=== PATIENT | female | born 1960 | race Caucasian/White ===

== ENCOUNTER 2018-04-04 07:23 | Outpatient (RCR) | payer OTHER, SELFPAY ==
--- NOTE | 2018-04-04 09:08 | IE_ITS ---
Date: 04/04/18 Referring: Joby Andersen MD M.D. Diagnosis: R knee PF chondromalacia, medial meniscus tear P.T. Diagnosis: R knee PF chondromalacia, medial meniscus tear SUBJECTIVE: History of Present Illness: Patient reports to be employed by [employer]. She was working on 12/03/17, when she had to pull a heavy cart from her right side, while opening a door on her left side, straining her right knee. She had immediate pain and swelling, and went to the [facility] for evaluation. She was provided, with what she describes as, a long leg stabilization brace, and to refrain from working x 3 days. 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 She reports ot have slow diminishment of her swelling, with use of brace and ice. She had 10 chiropractic appointments of management of her knee pain, and described having been treating solely with US modality around her knee. She did have some improvement, but followed with orthopaedics due to continued disrupting discomfort. [facility], after having an MRI. Her MRI demonstrated a mild meniscal tear. Dr. Andersen felt conservative treatment would manage her symptoms. He also prescribed her a brace , which she understands is to stabilize her knee. She does admit that it make her feel more stable, but she doesn't feel that she necessarily needs the brace. Her pain is under fairly good control at this time, and she is able to do just about any functional activity that she wishes. Reports resolution of swelling, unless she has overdone her activity, she may have low grade swelling. Pain Rating: .5 /10, currently. 2-3/10 at worst after higher level, long duration activities. Pain Location: Medial R knee Prior Level of Function: WNL Current Level of Function: Pain with standing rotation through the knee, when moving objects or doing some occupation object manipulation, kneeling for long time periods (sometimes resulting in bruising along the front of the knee), discomfort in the evening without sleep disruption, pain and instability with squatting. She able to continue with gardening, weed waking, and heavy yard work activities. Continues to work multimedia manager at [employer], avoiding lifting over 50 #. Social: , Employed by [employer]. Does not describe participation in any higher level functional activities, aside from her job duties. Comorbidities: None Falls in the last year: __x__ No ____Yes - How many? ____ - (if over 2, balance SM needs to be completed) Reported hospitalizations in the last year - __x__ No ____ Yes - Dates of admission/reason: Medications: Aleve prn Quality of Life: __x__ Excellent ____ Good __[]__ Fair __[]__ Poor Standardized Measures: LEFS score: __30%__ OBJECTIVE: Posture: Unimpaired Observation: Donning brace R knee. Visual appearance of knees and LE's is symmetrical. Gait: WNL, toe and heel walk WNL Palpation: WNL, with the exception of discomfort along the medial knee and pes anserine bursa. Edema: None Girth measurements: Symmetrical ROM: WNL bilaterally throughout LE's Joint Accessory Motion: WNL PF and TF joint Strength: 5/5 throughout B LE's, demonstrates good core awareness and stability. Initially compensates quad set with glute activation. Neuro: WNL Balance: WNL, no demonstration of poor proprioception at R LE. Special Tests: (-) to include Doug's, Lauchman's, Patella compression, patella grind, Apley's distraction and compression, valgus and varus stress testing, hyperextension testing. Mild pain with medial and lateral Thessaly rotation. Treatment: IE: [id number] Patient Education: Use of brace is up to her, as she demonstrate no great clinical impairments or instability. Always don if unstable or in pain. Proper form and speed of movement with below exercises. KX applied to all codes ____ Yes __x__ No Therapeutic procedures ([id number]). _ x_ HEP review: See file. Extensive program developed due to patient's schedule making it difficult for her to attend PT, so will try and use HEP as much as possible. Direct treatment time: 60 minutes Total treatment time: 60 minutes ASSESSMENT: Patient is a 57-year-old female, referred for PT services with the diagnosis of R patellofemoral chondromalacia and medial meniscal tear, confirmed with MRI. Patient presents with clinical signs and symptoms consistent with this diagnosis , with resolving impairment level problems. She demonstrates subjective c/o swelling and irritation with long duration weightbearing and high level activities, which can produce some swelling and instability of the knee. However, not presenting with either of these today, due to her fairly low impact activities over the past few days. She will require PT to initiate a general LE conditioning and strengthening program to re-establish stability of the knee with higher level activities with no pain, comparable to her premorbid level of function. Patient is assessed as: __x__ Low 19055 ____ Moderate 32144 ____ High 63146 complexity, based on the following: History: (list): x See comorbidities and social history. Examination: (list): x See above for functional limitations and impairments. Presentation: x Stable . Evolving Unstable Decision-Making: xx Low complexity Moderate complexity High complexity % Disability based on [] __x__ Patient requires skilled PT intervention to remediate the above functional limitations to return to: __x__ Premorbid level of function __x__ Return to full functional mobility __x__ Return to work demands, with no restrictions on weight lifiting. Prognosis: __x__ Excellent __[]__ Good __[]__ Fair __[]__ Poor STG: __3__ weeks. 1. Can continue with strengthening HEP independently, with good movement pattern and intrinsic support, to accomodate to her schedule as primary PT intervention. 2. Reports improvement in feeling of stability by 50%. 3. Pain decreased to 1/10 at the end of her work day. LTG: __6__ weeks. __x__ Return to premorbid level of function. __x__ Return to full, pain-free, functional mobility. __x__ Independent with self-maintenance program. PLAN: Patient to be seen 1-2x per week, for 6 weeks, adjusting frequency of visits per patient symptoms and response to treatment. Patient to receive both physical therapy and athletic training services. Treatment to include: x Therapeutic exercise - 66231: For gross LE strengthening, with focus on L LE, to include proprioceptive, OKC and CKC exercises, and hip girdle stabilization to insure biomechanical stabilization. Thank you for this referral. Please do not hesitate to contact me with any questions or concerns regarding this patient's plan of care.
== END 2018-04-05 23:59 | disposition home or self-care (01) ==
LOC: PT 07:23
PROVIDERS: PCP Nurse Practitioner Family; Referring Provider Specialist; Visit Provider Specialist
DX: S83.241D Other tear of medial meniscus, current injury, right knee, subsequent encounter (principal); M94.261 Chondromalacia, right knee
CPT/HCPCS: 97110; 97161

== ENCOUNTER 2019-02-28 09:14 | Outpatient (REF) | payer OTHER, SELFPAY ==
--- NOTE | 2019-02-28 09:00 | PAPFT_PTH ---
PATIENT: Paz Panchal LOC: [facility] U#:[id number] AGE/SX: 58/F ROOM: RE02/28/[address]: Velvet Sales APRN : 1960 BED: DIS: 02/28/2019 SPEC #: [id number] RECD: 02/28/19 12:58 STATUS: [place] REQ #: [id number] JOSE: 02/28/19 09:[address]: Velvet Sales DEPT: [facility] Cytology RECD BY: Alpa Turner Tissues: 1 - CX/ENDOCX FOR PAP SMEARS Procedures: PAP THIN PREP/UVM Screening HPV DNA PROBE Comments: [id number]
== END 2019-02-28 09:34 ==
LOC: LBN 09:14
PROVIDERS: PCP Nurse Practitioner Family; Visit Provider Nurse Practitioner Family
DX: Z12.4 Encounter for screening for malignant neoplasm of cervix (principal); Z11.51 Encounter for screening for human papillomavirus (HPV)
CPT/HCPCS: 88142; 87624

== ENCOUNTER 2019-03-26 00:56 | Outpatient (CLI) | payer OTHER, SELFPAY ==
--- NOTE | 2019-03-26 09:38 | DI.MAMMO_ITS ---
SYMPTOMS/DIAGNOSIS: SCREENING, Z12.31 MAMMOGRAM: Mammograms were interpreted according to the usual protocol including computer analysis with CAD system, tomosynthesis and C view imaging. The breasts are of moderate density with fairly symmetrical distribution of fibroglandular tissue. No dominant mass or clumped microcalcification identified in either breast. There is a biopsy clip in the upper inner quadrant of the right breast. Examination is compared with the previous examinations including September 2014 and there has been no gross interval change in appearance in comparison with the previous studies. CONCLUSION: No specific evidence of malignancy at this time. Routine screening examinations are suggested at yearly intervals due to the family history of breast carcinoma. Category 1, breast density category B. SA ASSESSMENT OF FINDINGS: Negative. Category 1. Patient will receive a letter notifying them of these results. BI-RADS category B. There are scattered areas of fibroglandular density.
== END 2019-03-26 01:16 ==
PROVIDERS: PCP Nurse Practitioner Family; Visit Provider Nurse Practitioner Family
DX: Z12.31 Encounter for screening mammogram for malignant neoplasm of breast (principal); Z80.3 Family history of malignant neoplasm of breast
CPT/HCPCS: 77063; 77067

== ENCOUNTER 2019-03-26 01:40 | Outpatient (CLI) | payer OTHER, SELFPAY ==
[2019-03-26 09:56] LABS: Anion Gap 10.5 mmol/L (3-11); BUN 22 mg/dL (7-18); CO2 24.5 mmol/L (21.0-32.0); CREATININE 0.71 mg/dL (0.55-1.02); Calcium 8.6 mg/dL (8.5-10.1); Calculated LDL 77 mg/dL; Chloride 107 mmol/L (98-107); Cholesterol 128 mg/dL (50-200); Glucose 93 mg/dL (70-100); HDL Cholesterol 33 mg/dL (40-60); Potassium 4.5 mmol/L (3.5-5.1); Sodium 142 mmol/L (136-145); Triglyceride 92 mg/dL (30-150)
[2019-03-27 09:44] LABS: HIV-1/2 Ag & Ab Screen Negative (NEGAT)
[2019-03-27 09:48] LABS: Hepatitis C Ab w Rflx HCV PCR Negative (NEGAT)
== END 2019-03-26 02:00 ==
PROVIDERS: PCP Nurse Practitioner Family; Visit Provider Nurse Practitioner Family
DX: Z13.220 Encounter for screening for lipoid disorders (principal); Z13.1 Encounter for screening for diabetes mellitus; Z11.59 Encounter for screening for other viral diseases; Z11.4 Encounter for screening for human immunodeficiency virus [HIV]
CPT/HCPCS: 36415; 80048; 80061; 83721; 86803; 87389

== ENCOUNTER 2019-05-14 16:20 | Outpatient (CLI) | payer OTHER, SELFPAY ==
--- NOTE | 2019-05-14 14:20 | DI.RAD_ITS ---
EXAM: XR KNEE RT 4V AP,LAT,ANGELI,PAT INDICATION: Per request worker's comp Ortho [id number] PAIN RT KNEE. COMPARISON: XR KNEE 2 VIEW RIGHT from 11/11/2017 TECHNIQUE: 2D digital imaging was performed. FINDINGS: The bones appear osteopenic. The joint space is intact. There is no significant periarticular spur ring. IMPRESSION: No acute abnormality.
== END 2019-05-14 16:40 ==
PROVIDERS: PCP Nurse Practitioner Family; Visit Provider Nurse Practitioner Family
DX: M25.561 Pain in right knee (principal); M85.88 Other specified disorders of bone density and structure, other site
CPT/HCPCS: 73564

== ENCOUNTER → 2022-02-08 02:17 | Outpatient (CLI) | payer OTHER, SELFPAY ==
--- NOTE | 2022-02-08 07:00 | DI.RAD_ITS ---
Exam(s) XR THUMB LT EXAM: XR THUMB LT CLINICAL HISTORY: Evaluate degree of arthritis,pain,m18.10. TECHNIQUE: 2D digital imaging was performed. Three views. COMPARISON: None. FINDINGS: BONES: No acute fracture is present. No bony destructive lesion is seen. JOINTS: No dislocation present. Minimal joint space narrowing at the interphalangeal joint of the th umb and mild periarticular spurring. Minimal narrowing of the metacarpophalangeal joint. Mild to mo derate narrowing at the 1st carpal metacarpal joint with mild periarticular spurring. SOFT TISSUE: Normal. IMPRESSION: Mmae-mp-gfyyucho degenerative changes at the 1st carpal metacarpal joint. DATA REPOSITORY: RADIATION DOSE DELIVERED:
== END ==
PROVIDERS: PCP Nurse Practitioner Family; Visit Provider Family Medicine
DX: M18.12 Unilateral primary osteoarthritis of first carpometacarpal joint, left hand (principal)
CPT/HCPCS: 73140

== ENCOUNTER 2022-02-15 03:20 | Outpatient (CLI) | payer OTHER, SELFPAY | END 2022-02-15 03:21 | disposition home or self-care (01) | PROVIDERS: PCP Nurse Practitioner Family; Visit Provider Family Medicine | DX: M18.12 Unilateral primary osteoarthritis of first carpometacarpal joint, left hand (principal); M79.645 Pain in left finger(s) | CPT/HCPCS: 36415; 84550 ==

== ENCOUNTER → 2022-03-16 00:56 | Outpatient (CLI) | payer OTHER, SELFPAY ==
--- NOTE | 2022-03-16 06:30 | DI.MAMMO_ITS ---
Exam(s) MAMMO SCREENING EXAM: MAMMO SCREENING CLINICAL HISTORY: screening,z12.39. TECHNIQUE: Bilateral full field digital CC and MLO mammographic images were obtained with 3D tomosyn thesis and utilizing computer aided detection (CAD). COMPARISON: Prior mammograms were reviewed, the most recent being March 2019.. FINDINGS: The fibroglandular tissue is again noted be moderately dense. No new findings in the immediate vicinity of the biopsy marker clip in the right breast. No new significant radiograph findings in left breast. In the anterior aspect of right breast there is a new asymmetric density-nodular density measuring 6 x 4 millimeters located 2.5 cm in from the nipple, lateral of center. Requires further imaging. The re are no malignant-appearing microcalcification groups in this region elsewhere in either breast. There is no significant architectural distortion nor skin thickening-retraction. IMPRESSION: 1. No radiographic evidence of malignancy in left breast. 2. New right breast lobulated asymmetric density-nodule measuring 6 x 4 millimeters. Spot compressio n view and ultrasound recommended. BI-RADS Category 0 - Assessment Incomplete: Need additional imaging evaluation Breast Density - Category C - Heterogeneously dense Breast density Category C or D implies that the patient has dense breast tissue. Dense breast tissue can make it harder to find cancer on a mammogram. Dense breast tissue is also associated with an incr eased risk of breast cancer. This information about the result of the mammogram report was provided to the patient to raise their awareness. Use this report when you speak with the patient about their risks for breast cancer, which includes their family history. At that time, you may recommend additional screening tests (Ultrasoun d or MRI) as these tests may add significant information. A negative radiographic report should not delay biopsy if a dominant or clinically suspicious mass is present. Up to ten percent of cancers are not identified on mammography. A negative report may reinforce clinical impression. Adenosis and dense breasts may obscure an underlying neoplasm. False positive reports average 6 to 10%. Patient will receive a letter notifying them of these results.
== END ==
PROVIDERS: PCP Nurse Practitioner Family; Visit Provider Nurse Practitioner
DX: Z12.31 Encounter for screening mammogram for malignant neoplasm of breast (principal); R92.8 Other abnormal and inconclusive findings on diagnostic imaging of breast
CPT/HCPCS: 77063; 77067

== ENCOUNTER → 2022-03-24 00:17 | Outpatient (CLI) | payer OTHER, SELFPAY ==
--- NOTE | 2022-03-24 | DI.US_ITS ---
Exam(s) MG MAMMO SCREEN CALL BACK UNI US BREAST RT LIMITED EXAM: MG MAMMO SCREEN CALL BACK UNI CLINICAL HISTORY: NEW ASYMMETRIC DENSITY RT BREAST. TECHNIQUE: Craniocaudal spot compression digital Mammography views of the rightbreast with Tomosynth esis and right breast ultrasound. COMPARISON: MG SCREENING RYANN MAMMO W/CAD DIGI from 09/11/2013 MG Screening Bilat Mammo from 09/30/2014 MG MG mammo screening from 03/26/2019 MG MG MAMMO SCREENING from 03/16/2022 US US BREAST RT LIMITED from 03/24/2022 FINDINGS: Mammography/Tomosynthesis: Masses/Architectural Distortion: Circumscribed lobulated nodule in the anterior breast tissue lateral to the nipple. No suspicious features. Microcalcifictions: No suspicious pleomorphic-type are seen. Skin Thickening/Nipple Retraction: None. Right breast US: Echotexture: Normal appearance of the glandular tissue. Shadowing: No suspicious foci. Cyst: In the 9 o'clock position, 3 cm from the nipple, there are 2 adjacent cysts measuring 4 and 3 millimeters. Also in 9 o'clock position, 6 cm from the nipple there is a 6 x 5 x 2 millimeters cyst. Solid lesions: None seen. Ductal dilation: None. IMPRESSION: 1. Mammographic nodule corresponds to a cyst. 2. Unless there is more urgent need, follow-up screening mammography is recommended, as per [place] [employer] guidelines. 3. The findings were discussed with the patient on the date of the examination. BI-RADS Category 2 - Benign Findings Breast Density - Category C - Heterogeneously dense A mammogram that demonstrates density of C or D indicates the patient's breast tissue is dense. Dense breast tissue is very common and is not abnormal, but dense breast tissue can make it harder to find cancer on a mammogram. Also, dense breast tissue may increase their breast cancer risk. This informa tion about the result of the mammogram report was provided to the patient to raise their awareness. U se this report when you speak with the patient about their risks for breast cancer, which includes th eir family history. At that time, you may recommend for more screening tests (Ultrasound or MRI) as t hey might be useful based on their risk. A negative radiographic report should not delay biopsy if a dominant or clinically suspicious mass is present. Up to ten percent of cancers are not identified on mammography. A negative report may reinforce clinical impression. Adenosis and dense breasts may obscure an underlying neoplasm. False positive reports average 6 to 10%. Patient will receive a letter notifying them of these results.
--- OUTSIDE RECORDS SUMMARY | 2022-03-24 00:20 | XMS_ITS | Clinical Summary ---
:1960 Author Organization [facility] [place] [address] Care Team Providers Name Role Phone Snow Bullock APRN Primary Care Provider [phone] Allergies Active Allergy Reactions Severity Noted Date Comments Sulfa (Sulfonamide Antibiotics) 2 Medications Medication Sig Dispensed Refills Start Date End Date Status ibuprofen Take 1 tablet by 30 tablet 0 01/12/2012 Ac tive (ADVIL;MOTRIN) 800 mg mouth every 8 tablet hours as needed for Pain. Active Problems No known active problems Social History Tobacco Use Types Packs/Day Years Used Date Never Smoker Alcohol Use Standard Drinks/Week Comments Yes 0 (1 standard drink = 0.6 oz pure alcoho l) Sex Assigned at Date Recorded Not on file Last Filed Vital Signs Vital Sign Reading Time Taken Comments Blood Pressure 126/80 11/11/2017 11:35 AM EDT Pulse 79 11/11/2017 11:35 AM EDT Temperature 36.7 ??C (98.1 ??F) 11/11/2017 10:15 AM EDT Respiratory Rate 16 11/11/2017 11:35 AM EDT Oxygen Saturation 99% 11/11/2017 11:35 AM EDT Inhaled Oxygen Concentration - - Weight - - Height - - Body Mass Index - - Plan of Treatment Health Maintenance Due Date Last Done Comments Covid-19 Vaccine (#1) 1965 HIV screen 1978 Hepatitis C Screening 1978 Tdap adult 1979 Tetanus vaccine 1979 HPV test 1990 PAP Smear 1990 Breast Cancer Share Decision Needed 2000 Colonoscopy 2005 Breast Cancer screening 2010 Zoster vaccine (1 of 2) 2010 Advance Directive 2015 Influenza (Flu) vaccine (1 of 1 - Influenza standard 04/06/2022 series) Insurance Payer Benefit Plan Subscriber ID Effective Dates Phone Address Type / Group WORK COMP WC WORK COMP [id number] 2017-Prese [phone] [address] [address] GENERIC GENERIC [address] [place] [address] Care Teams Nursing Surgical Services Director Relationship Specialty Start Date End Date Snow Bullock, COCOA BEAN ROASTER HELPER PCP - General 06/28/[address] [place], [place] [id number]
--- OUTSIDE RECORDS SUMMARY | 2022-03-24 00:21 | XMS_ITS | Encounter Summary ---
:1960 Author Organization [facility] [place] [address] Care Team Providers Name Role Phone Snow Bullock APRN Primary Care Provider [phone] Encounter Details Date Type Department Care Team Description 08/10/2011 Telephone FABRICATION TECHNICIAN at [facility] Sherman Villasenor RN [place] [address] [place] [id number] Social History Tobacco Use Types Packs/Day Years Used Date Never Assessed Sex Assigned at Date Recorded Not on file documented as of this encounter Miscellaneous Notes Telephone Encounter - Sherman Granda RN - 08/10/2011 10:06 AM EST Pt is not established within this office or [facility]. Pt calling today to report she shaved prior to holiday weekend, went to [employer]anning [employer] and used public/commericial hot tub at hotel they stayed at. Pt reports having minor, what she thinks is a tear in the crease on one side of labia. Unable to get to her PCP until 08/30, as a new PCP, took over the one she was currently seeing. Pt was seen forannual ECONOMIC ANALYSIS DIRECTOR in the spring. Reports having also gotten a light menses, after the strain of the holidays. Pt advised she needs to contact PCP for visit, we are able to make NPV, however timing wouldn't beappropriate for her issue. Urgent care also offered. Pt states she is applying petroleum jelly to area. Advised not to do so, may use crisco to help alleviate discomfort, keeping area clean and dry. Ptvoices understanding, does not wish to arrange visit to see fryer line helper in future to establish care. Pt. wasjust hoping to get seen today. All questions answered to pt satisfaction, pt agree's to get sooner visit at PCP or contact urgent care. Pt complies with plan Telephone Encounter - Sherman Granda RN - 08/10/2011 9:44 AM EST Message copied by SHERMAN GRANDA on SunAug 10, 2011 9:44 AM ------ Message from: ANGEL LUIS SIMPSON Created: SunAug 10, 2011 9:24 AM Contact: Self ECONOMIC ANALYSIS DIRECTOR Triage Concern Who Called: Self Call Back that patient will tack picker at: [phone] Brief concern: Pt stated she is menopausal and just got her period after 15 months. She also statedshe shaved and went to a [employer]anning [employer] and has a concern. Are you comfortable waiting for the nurse callback by the end of the day? Yes documented in this encounter Plan of Treatment Not on filedocumented as of this encounter Visit Diagnoses Not on filedocumented in this encounter Care Teams Shirring Machine Operator Relationship Specialty Start Date End Date Snow Bullock APRN PCP - General 06/28/[address] [place] [address] documented as of this encounter
--- OUTSIDE RECORDS SUMMARY | 2022-03-24 00:21 | XMS_ITS | Encounter Summary ---
:1960 [place] [address] Care Team Providers Name Role Phone Snow Bullock APRN Primary Care Provider [phone] Reason for Visit Reason Comments Rib Injury Encounter Details Date Type Department Care Team Description 01/12/2012 Emergency Emergency Department Ezra Holman PA [facility] EMERGENCY MEDIC[facility] [place] [id number] Chest wall injury [facility] EMERGENCY DEPT, [facility] [place] [address] [facility] Joselo faith [place] [phone] Social History Tobacco Use Types Packs/Day Years Used Date Never Smoker Alcohol Use Standard Drinks/Week Comments Yes 0 (1 standard drink = 0.6 oz pure alcoho l) Sex Assigned at Date Recorded Not on file documented as of this encounter Last Filed Vital Signs Vital Sign Reading Time Taken Comments Blood Pressure 121/54 01/12/2012 4:37 PM EDT Pulse 74 01/12/2012 4:37 PM EDT Temperature 36.9 ??C (98.4 ??F) 01/12/2012 4:37 PM EDT Respiratory Rate 14 01/12/2012 4:37 PM EDT Oxygen Saturation 99% 01/12/2012 4:37 PM EDT Inhaled Oxygen Concentration - - Weight - - Height - - Body Mass Index - - documented in this encounter Discharge Instructions Discharge InstructionsCassEzra strauss PA - 01/12/2012 5:21 PM EDT Try a rib belt for comfort during the day. Cough and deep breathe 3-4 times a day. Ibuprofen and Tylenol for pain. No lifting more than 20 pounds for the next week. To be rechecked if shortness of breath difficulty breathing or abdominal pain. documented in this encounter Medications at Time of Discharge Medication Sig Dispensed Refills Start Date End Date ibuprofen (ADVIL;MOTRIN) Take 1 tablet by 30 tablet 0 01/11 800 mg tablet mouth every 8 hours as needed for Pain. documented as of this encounter ED Notes Ezra George PA - 01/12/2012 5:16 PM EDT Chief Complaint Patient presents with ??? Rib Injury HPI Comments: Patient here with a rib injury. 3 days ago while reaching over the side of the roof felt a snap and pain left lateral ribs. Pain gradually improving today use her right arm and had sharp pain in the same area. That sharp pain has improved the last few hours. Patient denies shortness of breath abdominal pain or any other complaints. Negative past medical history for pulmonary disease. The history is provided by the patient. Allergies Allergen Reactions ??? Sulfa(sulfonamide Antibiotics) Review of Systems Physical Exam Pulmonary/Chest: Effort normal and breath sounds normal. She exhibits tenderness (left midclavicularlower rib tenderness, no ecchymosis). Abdominal: Soft. Bowel sounds are normal. No tenderness. chest wall injury, discussed need for chest x-ray. Patient agrees no x-ray needed, I suspect intercostal injury rather than a fracture. Procedures MDM ED Course: Chest wall injury LARRY Colon 01/12/12 1720 documented in this encounter Miscellaneous Notes Discharge Summary - Provider, Kita - 01/15/2012 9:32 AM EDT Miscellaneous - Provider, Kita - 01/12/2012 6:31 PM EDT ED Triage - Laure Romero RN - 01/12/2012 4:40 PM EDT Patient here with complaints of left rib pain. Patient was leaning over and felt a pop and now hurtswhen she reaches with her right arm she felt a bit of pain and is concerned, and is having a hard time sleeping due to pain. Patient is alert and oriented X 3. No pain on deep inspiration. documented in this encounter Plan of Treatment Not on filedocumented as of this encounter Visit Diagnoses Diagnosis Chest wall injury Other injury of chest wall documented in this encounter Care Teams Warehouse Assembly Worker Relationship Specialty Start Date End Date Snow Bullock APRN PCP - General 06/28/[address] [place] [address] documented as of this encounter
== END ==
PROVIDERS: PCP Nurse Practitioner Family; Visit Provider Nurse Practitioner Family
DX: Z12.31 Encounter for screening mammogram for malignant neoplasm of breast (principal); R92.8 Other abnormal and inconclusive findings on diagnostic imaging of breast
CPT/HCPCS: 76642; 77063; 77067

== ENCOUNTER 2022-10-05 06:53 | Day surgery (SDC) | payer OTHER, SELFPAY ==
--- NOTE | 2022-10-04 19:45 | W.PM.DSUDISC ---
Date of service: 10/05/22 Time of Service: 08:03 Discharge Plan Disposition Patient Disposition: Home Condition: Good Discharge Details Reason For Visit: Screening colonoscopy Attending Provider: Armaan Mcbride Primary Care Provider: Velvet Sales Home Meds and New Rx's Prescriptions: Continued calcium carb-D3-mag [id number] [phone] zj-[id number]-[id number]-mg tablet 1 tab PO DAILY Rx Instructions: administer with a meal fluticasone propionate [Flonase Allergy Relief] 50 mcg/actuation spray,suspension 1 - 2 spray NS DAILY Qty: 1 3RF albuterol sulfate [ProAir HFA] 90 mcg/actuation HFA aerosol inhaler 1 puff Inhalation Q4-6H PRN Qty: 1 0RF Rx Instructions: DISPENSE ALBUTEROL INHALER BRAND COVERED BY INSURANCE meloxicam 15 mg tablet 15 mg PO DAILY Qty: 30 2RF Discontinued bisacodyl [Dulcolax (bisacodyl)] 5 mg tablet,delayed release (DR/EC) 5 mg PO ONCE Qty: 4 0RF Rx Instructions: Take according to provider's instructions for colonoscopy prep. polyethylene glycol 3350 17 gram/dose powder 17 g PO ONCE Qty: 238 0RF Rx Instructions: To be taken as directed by prescriber's office for colonoscopy prep. Discharge Instructions Instructions: Diverticulosis (GEN) Additional Instructions: Paz, we were able to complete your colonoscopy without any difficulty today. The quality of your prep was excellent. You have just a few diverticula. These are very little weak spots in the colon wall. I provided a little bit of general information about them. Based on what I see on the colonoscopy, I do not think these will ever become a problem for you. I do not think you need to make any special modifications to your diet for them. You have a very small amount of redundancy in the skin right at your anus. This is almost certainly from old hemorrhoids probably associated with your previous pregnancies. Honestly, I do not think you need to do anything about these. The pain of an operation to reduce it is probably not worth it. You should have another colonoscopy in 10 years as routine surveillance for colon cancer. 1. If tolerated, consume a soft, low fiber diet for 1-2 days. 2[address] Do not drive, drink alcohol, operate machinery, make critical decisions, or do activities that require coordination or balance for 24 hours. 3. Because air was put into your colon during the procedure, expelling air from your rectum (passing gas or farting) is normal. 4. You may not have a bowel movement for 1-3 days because of the colonoscopy prep. This is normal. 5. Go directly to the emergency room if you notice any of the following: Develop chills (warm to touch), or if you have a thermometer and your temperature is above 101 Difficulty breathing or difficultly swallowing Persistent vomiting Severe abdominal pain, other than gas cramps Severe chest pain Black, tarry stools Any bleeding ? exceeding one tablespoon 6. Call your physician if the site where your intravenous was started becomes red, swollen, painful, and warm to touch. 7. Your physician has reviewed your pre-procedure medications. Please continue to take those medications as previously ordered. You will be given specific information/education regarding any changes to your medications before leaving. Activity:: Activity as Tolerated Diet:: As Tolerated Discharge Orders Discharge Orders: Discharge Order (Routine); Ordered 10/04/22 Ordered By: Armaan Mcbride DS: Diagnosis Discharge Diagnosis (1) Screening for colon cancer: Status: Acute Asessment and Plan: Normal colonoscopy, recommend next screening colonoscopy in 10 years
--- NOTE | 2022-10-04 19:46 | W.PM.OP ---
Date of service: 10/05/22 Operative Note Operative Note DATE OF PROCEDURE: 10/05/22 PRE-OP DIAGNOSIS: Screening colonoscopy PROCEDURE: Colonoscopy SURGEON: Armaan Mcbride ANESTHESIA TYPE: General:No Airway Refer to Anesthesia Record COMPLICATIONS: None Patient was transported to: same day Patient's condition: stable Indications: Jazmin is a 62 year old woman here for her next screening colonoscopy
[2022-10-05 06:59] VITALS: BP 118/85; PULSE 76; RESP 18; TEMP 37; O2SAT 98
[2022-10-05] MEDS: Lactated Ringers 1,000 ML 80 ML IV (07:07)
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
[2022-10-05 07:14] VITALS: BMI 23.8
[2022-10-05 08:06] VITALS: BP 125/82; PULSE 85; RESP 18; TEMP 36.3; O2SAT 98
--- NOTE | 2022-10-05 08:16 | COLE_ITS ---
Date of service: 10/05/22 Time of Service: 08:16 Colonoscopy Report Date of procedure: 10/05/22 Pre-op diagnosis general: Screening colonoscopy Post-op diagnosis procedure note: same Procedure: Colonoscopy Surgeon: Armaan Mcbride Anesthesia Type: General:No Airway Estimated blood loss (mL): 0 Pathology: none sent Complications: None Disposition: same day Indications: Paz is a 62-year-old woman here for her next screening colonoscopy Prep: Miralax/Dulcolax Procedure Start Time: 07:47 Procedure End Time: 07:56 Retraction Time: 6 Findings: There are diverticulosis Procedure Description: After the induction of monitored anesthetic care, and with the patient in left lateral decubitus position, I began by performing an external anorectal exam.? Perineum and skin were normal, as was the anal verge.? There is very mild redu ndancy of the external perianal skin, consistent with fibrosed external hemorrhoids.? Next, I performed a digital rectal exam.? I did not appreciate any abnormal findings.? Next, I advanced a colonoscope into the rectal vault.? I performed retroflexion.? This was normal.? Using insufflation, I then advanced the colonoscope beyond the rectal folds and into the sigmoid colon before advancing towards the cecum.? There are very rare sigmoid diverticula. Perhaps 2 or 3 total. The quality of the prep was outstanding.? The scope was noted to be in the cecum by identification of the ileocecal valve and appendiceal orifice.? I then began withdrawing the colonoscope using repeated irrigation as necessary for full evaluation of the colonic mucosa. ?Once the scope was withdrawn to the level of the rectum, great care was taken to examine portions of the rectal folds.? Finally, the scope was withdrawn and the patient was brought to the same-day surgery recovery unit as the anesthetic wore off. ?The findings and instructions were shared with the patient prior to discharge.
--- NOTE | 2022-10-05 08:16 | W.ANESPOSTOP ---
Postoperative Evaluation Date, Time and Location Date Performed: 10/05/22 Time Performed: 08:16 Patient Location: Day Surgery Unit Vital Signs Most Recent Imported Vital Signs: Most Recent Vital Signs Temp Pulse Resp BP Pulse Ox 36.3 C L 85 18 125/82 98 10/05/22 08:06 10/05/22 08:06 10/05/22 08:06 10/05/22 08:06 10/05/22 08:06 Pain Score Most Recent Pain Score: Most Recent Pain Score Pain Level 0 10/05/22 08:06 Assessment Mental Status: Awake (Alert & Oriented to Patient Baseline) Airway and Respiratory Function: Patent airway with normal (patient baseline) respiratory exam Cardiovascular Function: Hemodynamically Stable Hydration Status: Adequately Hydrated Nausea & Vomiting: No Nausea or Vomiting Pain: Pt. Denies Any Pain Peripheral Nerve Block: Patient did not receive a nerve block
[2022-10-05 08:29] VITALS: BP 116/80; PULSE 76; RESP 18; TEMP 36.3; O2SAT 97
== END 2022-10-05 08:37 | disposition home or self-care (01) ==
PROVIDERS: PCP Nurse Practitioner Family; Visit Provider Surgery
PROC: 0DJD8ZZ Inspection of Lower Intestinal Tract, Via Natural or Artificial Opening Endoscopic (ICD-10-PCS; CPT 45378; principal; 2022-10-05 08:15)
DX: Z12.11 Encounter for screening for malignant neoplasm of colon (principal)
CPT/HCPCS: 45378

== ENCOUNTER 2023-04-18 03:22 | Outpatient (CLI) | payer OTHER, SELFPAY ==
[2023-04-18 07:13] LABS: Abs Immature Grans 0.06 10^3/uL (0.0-0.06); Absolute Basophil Count 0.07 10^3/uL (0.0-0.2); Absolute Eosinophil Count 0.34 10^3/uL (0.0-0.7); Absolute Lymphocyte Count 1.61 10^3/uL (1.2-3.4); Absolute Monocyte Count 0.56 10^3/uL (0.1-0.8); Absolute Neutrophil Count 2.57 10^3/uL (1.2-6.7); Basophils % 1.3; Eosinophils % 6.5; HCT 38.7 % (36.0-46.0); HGB 12.9 g/dL (11.2-15.7); Immature Grans % 1.2; Lymphocytes % 30.9; MCH 31.9 pg (27.0-33.0); MCHC 33.3 % (32.0-36.0); MCV 96 fL (80-95); MPV 9.5 fL (8.0-11.0); Monocytes % 10.7; Neutrophils % 49.4; Platelet Count 265 10^3/uL (130-400); RBC 4.05 10^6/uL (3.93-5.22); RDW 13.2 % (11.7-14.6); RDW-SD 46.6 fL; WBC 5.21 10^3/uL (4.4-10.8)
[2023-04-18 08:23] LABS: ALT 29 U/L (14-59); AST 12 U/L (15-37); Albumin 3.8 g/dL (3.4-5.0); Alkaline Phosphatase 101 U/L (46-116); Anion Gap 6.3 mmol/L (3-11); BUN 23 mg/dL (7-18); Bilirubin, Total 0.4 mg/dL (0.2-1.0); CO2 28.7 mmol/L (21.0-32.0); CREATININE 0.8 mg/dL (0.55-1.02); Calcium 8.6 mg/dL (8.5-10.1); Calculated LDL 83 mg/dL (<100); Chloride 107 mmol/L (98-107); Cholesterol 141 mg/dL (<200); Estimated GFR 83.26 (mL/min/1.73m2); Glucose 104 mg/dL (74-106); HDL Cholesterol 35 mg/dL (40-60); Potassium 4.1 mmol/L (3.5-5.1); Sodium 142 mmol/L (136-145); Total Protein 6.9 g/dL (6.4-8.2); Triglyceride 116 mg/dL (<150)
== END 2023-04-18 03:23 | disposition home or self-care (01) ==
LOC: LBO 03:22
PROVIDERS: PCP Nurse Practitioner Family; Visit Provider Nurse Practitioner
DX: E78.5 Hyperlipidemia, unspecified (principal)
CPT/HCPCS: 36415; 80053; 80061; 85025

== ENCOUNTER → 2023-08-30 02:57 | Outpatient (CLI) | payer OTHER, SELFPAY ==
--- NOTE | 2023-08-30 08:15 | DI.MAMMO_ITS ---
Exam(s) MAMMO SCREENING EXAM: MAMMO SCREENING CLINICAL HISTORY: screening,z12.39 TECHNIQUE: Bilateral full field digital CC and MLO mammographic images were obtained with 3D tomosyn thesis and utilizing computer aided detection (CAD). COMPARISON: Available for comparison. FINDINGS: Masses/Architectural Distortion: None seen. There is a biopsy clip in the right breast. Microcalcifications: No suspicious pleomorphic-type are seen. Skin Thickening/Nipple Retraction: None. IMPRESSION: 1. No significant interval change with no specific features of malignancy noted. 2. Unless there is more urgent need, screening mammography is recommended, as per [employer] guidelines. BI-RADS Category 1 - Negative Breast Density - Category C - Heterogeneously dense Breast density category C or D implies that the patient has dense breast tissue. Dense breast tissue is very common and is not abnormal but dense breast tissue can make it harder to find cancer on a ma mmogram. Also, dense breast tissue may increase their breast cancer risk. This information about the result of the mammogram report was provided to the patient to raise their awareness. Use this report when you speak with the patient about their risks for breast cancer, which includes their family hist ory. At that time, you may recommend for more screening tests (Ultrasound or MRI) as they might be us eful based on their risk. A negative radiographic report should not delay biopsy if a dominant or clinically suspicious mass is present. Up to ten percent of cancers are not identified on mammography. A negative report may reinforce clinical impression. Adenosis and dense breasts may obscure an underlying neoplasm. False positive reports average 6 to 10%. Patient will receive a letter notifying them of these results.
== END ==
PROVIDERS: PCP Nurse Practitioner; Visit Provider Nurse Practitioner
DX: Z12.31 Encounter for screening mammogram for malignant neoplasm of breast
CPT/HCPCS: 77063; 77067

== ENCOUNTER 2025-01-28 13:05 | Outpatient (REF) | payer OTHER, SELFPAY | END 2025-01-28 13:06 | disposition home or self-care (01) | LOC: LBN 13:05 | PROVIDERS: PCP Nurse Practitioner; Visit Provider Nurse Practitioner Adult Health | DX: J02.9 Acute pharyngitis, unspecified (principal); Z20.818 Contact with and (suspected) exposure to other bacterial communicable diseases | CPT/HCPCS: 87070 ==

== ENCOUNTER 2025-06-23 03:34 | Outpatient (CLI) | payer OTHER, SELFPAY ==
[2025-06-23 15:55] LABS: ALT 28 U/L (10-49); AST 22 U/L (<34); Albumin 4.3 g/dL (3.4-5.0); Alkaline Phosphatase 96 U/L (46-116); Anion Gap 9.8 mmol/L (3-11); BUN 18 mg/dL (9-23); Bilirubin, Total 0.80 mg/dL (0.2-1.2); CO2 25.2 mmol/L (20.0-31.0); Calcium 9.1 mg/dL (8.3-10.6); Chloride 105 mmol/L (98-107); Cholesterol 141 mg/dL (<200); Glucose 91 mg/dL (74-106); HDL Cholesterol 47 mg/dL (>40); Potassium 4.4 mmol/L (3.5-5.1); Sodium 140 mmol/L (136-145); Total Protein 6.7 g/dL (5.7-8.2)
== END 2025-06-23 03:35 | disposition home or self-care (01) ==
LOC: LBO 03:34
PROVIDERS: PCP Nurse Practitioner Adult Health; Referring Provider Nurse Practitioner Adult Health; Visit Provider Nurse Practitioner Adult Health
DX: E78.5 Hyperlipidemia, unspecified (principal); Z13.220 Encounter for screening for lipoid disorders; Z13.1 Encounter for screening for diabetes mellitus; Z82.61 Family history of arthritis
CPT/HCPCS: 36415; 80053; 80061; 86200; 86431

== ENCOUNTER → 2025-06-25 05:59 | Outpatient (CLI) | payer OTHER, SELFPAY ==
--- NOTE | 2025-06-25 08:00 | DI.RAD_ITS ---
Exam(s) XR ARTHRITIS SERIES EXAM: XR ARTHRITIS SERIES CLINICAL HISTORY: r/o signs of RA, erosions, etc., FAMILY HX RA, PAIN BOTH HANDS. TECHNIQUE: 2D digital imaging was performed. COMPARISON: CR XR THUMB LT from 02/08/2022 FINDINGS: Two views: AP and [place] views of both hands. There are no fractures and no abnormal soft tissue calcifications evident. There is moderate degenerative change in the 1st carpometacarpal joint of the left hand, exhibiting some progression when compared to prior images of February 2022. There are no degenerative subarticular cysts at the base of the thumb metacarpal. The similar articulation in the opposite-right hand appears unremarkable. There are no erosions at the metacarpophalangeal joints of either hand. No asymmetric degenerative change in the interphalangeal joints and no erosions at these levels. No osteophytes evident.. IMPRESSION: There are moderate osteoarthritic degenerative changes at the 1st carpometacarpal joint of the left hand, exhibiting some progression when compared to images of February 2022.. DATA REPOSITORY: RADIATION DOSE DELIVERED:
--- NOTE | 2025-06-25 08:00 | DI.MAMMO_ITS ---
Exam(s) MAMMO SCREENING EXAM: MAMMO SCREENING CLINICAL HISTORY: screening, Z12.39 TECHNIQUE: Mammograms were interpreted according to the usual protocol including computer analysis with CAD system, tomosynthesis and C-view imaging. COMPARISON: 2018 through 2023 FINDINGS: The breasts are composed of heterogeneously dense fibroglandular densities, Breast Density category C. No suspicious masses or suspicious microcalcifications are seen. A biopsy marker is noted in the superior central right breast tissue. There is a stable area of nodularity noted in the lateral subareolar right breast consistent with a lymph node.. No skin thickening or abnormal axillary lymph nodes are seen. There has been no significant change from prior exams. IMPRESSION: BI-RADS Category 1, Negative mammogram. Yearly screening mammography is recommended. Breast Density: Category C - The breasts are heterogeneously dense, which may obscure small masses. Breast density Category C or D implies that the patient has dense breast tissue. Dense breast tissue can make it harder to find cancer on a mammogram. Dense breast tissue is also associated with an increased risk of breast cancer. This information about the result of the mammogram report was provided to the patient to raise their awareness. Use this report when you speak with the patient about their risks for breast cancer, which includes their family history. At that time, you may recommend additional screening tests (Ultrasound or MRI) as these tests may add significant information. A negative radiographic report should not delay biopsy if a dominant or clinically suspicious mass is present. Up to ten percent of cancers are not identified on mammography. A negative report may reinforce clinical impression. Adenosis and dense breasts may obscure an underlying neoplasm. False positive reports average 6 to 10%.
== END ==
LOC: DI 05:59
PROVIDERS: PCP Nurse Practitioner Adult Health; Visit Provider Nurse Practitioner Adult Health
DX: Z82.61 Family history of arthritis (principal); M79.641 Pain in right hand; M79.642 Pain in left hand; Z12.31 Encounter for screening mammogram for malignant neoplasm of breast
CPT/HCPCS: 77063; 77067; 73120

== ENCOUNTER → 2025-07-03 01:41 | Outpatient (CLI) | payer OTHER, SELFPAY ==
--- NOTE | 2025-07-03 10:02 | DI.DEXA_ITS ---
Exam(s) XR DEXA BONE DENSITY W/WO MAC EXAM: XR DEXA BONE DENSITY W/WO MAC CLINICAL HISTORY: baseline screening, ASYMPTOMATIC MENOPAUSAL STATE, Z78.0, Z13.820 TECHNIQUE: [employer] Horizon C densitometer analysis of left hip, lumbar spine and left forearm. Lateral survey image of the thoracic and lumbar spine. COMPARISON: No exams were available for comparison FINDINGS: Lateral view of the thoracic and lumbar spine shows no evidence of compression fractures. Bone mineral density measurements of the lumbar spine correspond to a total T- score of -2.8, in the osteoporotic range Bone mineral density measurements of the left hip correspond to a total T-score of -2.6. The femoral neck T-score is -3.1, in the osteoporotic range. Theleft forearm bone mineral density measurements correspond to a T-score of the distal 3rd of -2.6, in the osteoporotic range. IMPRESSION: Osteoporosis of the spine, hip and forearm.
== END ==
LOC: DI 01:42
PROVIDERS: PCP Nurse Practitioner Adult Health; Visit Provider Nurse Practitioner Adult Health
DX: Z13.820 Encounter for screening for osteoporosis (principal); Z78.0 Asymptomatic menopausal state; M81.0 Age-related osteoporosis without current pathological fracture
CPT/HCPCS: 77080